=== PATIENT | male | born 1985 | race Caucasian/White ===

== ENCOUNTER 2019-06-07 16:38 | Emergency (ER) | payer OTHER ==
[2019-06-07] MEDS ORDERED: Bacitracin Oint 1 GM U/D Packet TOP ONE (16:46)
[2019-06-07] MEDS ORDERED: Diphtheria,Pertussis(Acell),Tetanus Vaccine 0.5 ML Syringe IM ONE (16:46)
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
== END 2019-06-07 17:53 | disposition home or self-care (01) ==
LOC: MW.ED 16:38
DX: S81.812A Laceration without foreign body, left lower leg, initial encounter (principal); S81.811A Laceration without foreign body, right lower leg, initial encounter; W26.8XXA Contact with other sharp object(s), not elsewhere classified, initial encounter
CPT/HCPCS: 12002; 90471; 90715; 99282; J2001

== ENCOUNTER 2019-06-15 09:54 | Emergency (ER) | payer OTHER | END 2019-06-15 10:27 | disposition home or self-care (01) | LOC: MW.ED 09:54 | DX: Z53.21 Procedure and treatment not carried out due to patient leaving prior to being seen by health care provider (principal) ==